=== PATIENT | female | born 1990 | race Caucasian/White ===

== ENCOUNTER 2018-04-24 13:07 | Inpatient (IN) | payer MEDICAID ==
[2018-04-24] MEDS ORDERED: MISOPROSTOL 200 MCG TAB PR (16:00)
[2018-04-24] MEDS ORDERED: BUTORPHANOL 1 MG INJ IV (16:00)
[2018-04-24] MEDS ORDERED: LIDOCAINE 1% (MPF) 30 ML INJ INJ (16:00)
[2018-04-24] MEDS ORDERED: CARBOPROST 250 MCG INJ IM (16:00)
[2018-04-24] MEDS ORDERED: METHYLERGONOVINE 0.2 MG INJ IM (16:00)
[2018-04-24] MEDS ORDERED: OXYTOCIN 30 UNITS/LR 500 ML IV ×2 (16:00)
[2018-04-24] MEDS: LACTATED RINGER'S 1,000 ML IV* (17:03)
[2018-04-24 17:39] LABS: ADD MAN DIFF? NO
[2018-04-24 17:42] LABS: WHITE BLOOD COUNT 8.6 10^3/ul (4.8-10.8)
[2018-04-24 17:42] LABS: BASOPHILS % 0.2 % (0.0-2.0); EOSINOPHILS % 0.5 % (0.0-7.0); HEMATOCRIT 43.7 % (37.0-47.0); HEMOGLOBIN 14.4 g/dl (12.0-16.0); LYMPHOCYTES # 1.6 10^3/ul (0.8-2.9); LYMPHOCYTES % 18.8 % (15.0-51.0); MEAN CORPUSCULAR HEMOGLOBIN 31.2 pg (29.0-33.0); MEAN CORPUSCULAR VOLUME 94.8 fl (82.0-101.0); MEAN PLATELET VOLUME 12.8 fl (7.4-10.4); MONOCYTE # 0.7 10^3/ul (0.3-0.9); MONOCYTES % 7.5 % (0.0-11.0); NEUTROPHIL # 6.2 10^3/ul (1.6-7.5); NEUTROPHILS % 72.4 % (39.0-77.0); PLATELET COUNT 195 10^3/UL (140-415); RED BLOOD COUNT 4.61 10^6/ul (4.20-5.40); RED CELL DISTRIBUTION WIDTH 14.2 % (11.5-14.5)
[2018-04-24 18:01] LABS: INR 0.86; PROTIME 11.8 Sec (11.9-14.9); PT RATIO 0.9
[2018-04-24 18:02] LABS: PARTIAL THROMBOPLASTIN TIME 28.3 Sec (25.0-35.0)
[2018-04-24] MEDS ORDERED: AMPICILLIN 2 GM/NS (PMX) 100 ML (18:03)
[2018-04-24] MEDS: AMPICILLIN 2 GM/NS (PMX) 100 ML IV (18:11)
[2018-04-24] MEDS: OXYTOCIN 30 UNITS/LR 500 ML IV (18:25)
[2018-04-24 18:30] LABS: HEPATITIS B SURFACE ANTIGEN NEGATIVE (NEGATIVE)
[2018-04-24 19:55] LABS: RAPID PLASMA REAGIN NONREACTIVE (NR)
[2018-04-24 20:15] LABS: AMPHETAMINE/METHAMPHETAMINE Negative (NEGATIVE); BARBITURATES Negative (NEGATIVE); BENZODIAZEPINES Negative (NEGATIVE); CANNABINOIDS Negative (NEGATIVE); COCAINE Negative (NEGATIVE); OPIATES Negative (NEGATIVE)
[2018-04-24] MEDS: AMPICILLIN 1 GM/NS (PMX) 50 ML IV (21:45)
[2018-04-24] MEDS ORDERED: LACTATED RINGER'S 1,000 ML IV (21:50)
[2018-04-24] MEDS ORDERED: IBUPROFEN 600 MG TAB PO (22:00)
[2018-04-25] MEDS: LACTATED RINGER'S 1,000 ML IV* (02:14)
[2018-04-25] MEDS: AMPICILLIN 1 GM/NS (PMX) 50 ML IV ×2 (02:26→06:01)
[2018-04-25] MEDS: BUTORPHANOL 2 MG INJ IV (04:43)
[2018-04-25] MEDS: OXYTOCIN 30 UNITS/LR 500 ML IV ×2 (07:49→11:55)
[2018-04-25] MEDS ORDERED: METHYLERGONOVINE 0.2 MG INJ IM (10:00)
[2018-04-25] MEDS ORDERED: ZOLPIDEM 5 MG TAB PO (10:00)
[2018-04-25] MEDS ORDERED: SENNA/DOCUSATE NA (8.6MG/50MG) TAB PO (10:00)
[2018-04-25] MEDS ORDERED: OXYTOCIN 30 UNITS/LR 500 ML IV (10:00)
[2018-04-25] MEDS ORDERED: MISOPROSTOL 200 MCG TAB PR (10:00)
[2018-04-25] MEDS ORDERED: CARBOPROST 250 MCG INJ IM (10:00)
[2018-04-25] MEDS ORDERED: NACL 0.9% 3 ML SYG IV (10:00)
[2018-04-25] MEDS: IBUPROFEN 600 MG TAB PO ×3 (11:46→23:30)
[2018-04-25] MEDS: BENZOCAINE 20% 56 ML SPRAY TOP (11:47)
[2018-04-25] MEDS: WITCH HAZEL/GLYCERIN PAD PR (11:47)
[2018-04-25] MEDS: SENNA/DOCUSATE NA (8.6MG/50MG) TAB PO ×2 (11:47→21:13)
[2018-04-25] MEDS: LANOLIN 7 GM TUBE TOP (11:47)
[2018-04-26] MEDS: OXYCODONE/ASPIRIN (4.88/325) TAB PO (03:53)
[2018-04-26] MEDS: IBUPROFEN 600 MG TAB PO ×4 (05:34→23:48)
[2018-04-26 08:03] LABS: ADD MAN DIFF? NO
[2018-04-26 08:06] LABS: WHITE BLOOD COUNT 8.3 10^3/ul (4.8-10.8)
[2018-04-26 08:06] LABS: BASOPHILS % 0.2 % (0.0-2.0); EOSINOPHILS # 0.1 10^3/ul (0.0-0.5); HEMATOCRIT 35.6 % (37.0-47.0); HEMOGLOBIN 11.6 g/dl (12.0-16.0); LYMPHOCYTES # 2.3 10^3/ul (0.8-2.9); LYMPHOCYTES % 27.4 % (15.0-51.0); MEAN CORPUSCULAR HEMOGLOBIN 30.8 pg (29.0-33.0); MEAN CORPUSCULAR HGB CONC 32.6 g/dl (32.0-37.0); MEAN CORPUSCULAR VOLUME 94.4 fl (82.0-101.0); MEAN PLATELET VOLUME 12.2 fl (7.4-10.4); MONOCYTE # 0.7 10^3/ul (0.3-0.9); MONOCYTES % 8.1 % (0.0-11.0); NEUTROPHIL # 5.2 10^3/ul (1.6-7.5); NEUTROPHILS % 62.6 % (39.0-77.0); PLATELET COUNT 166 10^3/UL (140-415); RED BLOOD COUNT 3.77 10^6/ul (4.20-5.40)
[2018-04-26] MEDS: SENNA/DOCUSATE NA (8.6MG/50MG) TAB PO ×2 (09:51→21:03)
[2018-04-27] MEDS: IBUPROFEN 600 MG TAB PO ×2 (06:47→11:31)
[2018-04-27] MEDS: SENNA/DOCUSATE NA (8.6MG/50MG) TAB PO (09:18)
[2018-04-27] MEDS: DIPHTH/TET/ACEL PERTUSS (ADULT) 0.5 ML VIAL IM* (12:54)
== END 2018-04-27 16:50 | disposition home or self-care (01) | DRG 775 ==
LOC: OBT 13:07 → PP1 04-25 09:22 → L-D 13:07 → OBT 15:40 → L-D 15:40
PROVIDERS: Obstetrics & Gynecology
PROC: 10E0XZZ Delivery of Products of Conception, External Approach (ICD-10-PCS; principal; 2018-04-25)
PROC: 3E033VJ Introduction of Other Hormone into Peripheral Vein, Percutaneous Approach (ICD-10-PCS; 2018-04-25)
DX: O69.81X0 Labor and delivery complicated by cord around neck, without compression, not applicable or unspecified (principal); Z3A.38 38 weeks gestation of pregnancy; Z37.0 Single live birth
CPT/HCPCS: 76818; 80307; 85025; 85610; 85730; 86592; 86850; 86900; 86901; 87340